=== PATIENT | female | born 1970 | race Two or more races ===

== ENCOUNTER 2020-05-04 12:45 | Inpatient (IN) | payer OTHER ==
[~2020-05-04] VITALS: Ht 165.1 cm; Wt 67.1 kg
[2020-05-04] MEDS ORDERED: FERROUS FUMARA324 MG PO (14:27)
[2020-05-12] MEDS ORDERED: SOD SULFACET170.3 GM (08:19)
[2020-05-12] MEDS ORDERED: METRONIDAZOLE45 G1 (08:19)
== END 2020-05-15 17:19 | disposition home or self-care (01) | DRG 330 ==
LOC: ADM 12:45 → EDSTATUS 12:45 → O/R 05-12 05:00 → SURG 05-12 05:00 → SURH 05-12 06:15 → SURG 05-12 11:03 → SURH 05-12 12:45 → SURG 05-15 17:19
PROVIDERS: ADMIT Colon & Rectal Surgery; ATTEND Colon & Rectal Surgery
PROC: 07BD4ZX Excision of Aortic Lymphatic, Percutaneous Endoscopic Approach, Diagnostic (ICD-10-PCS; 2020-05-12)
PROC: 0DBU4ZZ Excision of Omentum, Percutaneous Endoscopic Approach (ICD-10-PCS; 2020-05-12)
PROC: 0DTF4ZZ Resection of Right Large Intestine, Percutaneous Endoscopic Approach (ICD-10-PCS; principal; 2020-05-12 06:15)
PROC: 30233N1 Transfusion of Nonautologous Red Blood Cells into Peripheral Vein, Percutaneous Approach (ICD-10-PCS; 2020-05-15)
DX: C18.3 Malignant neoplasm of hepatic flexure (principal); C77.2 Secondary and unspecified malignant neoplasm of intra-abdominal lymph nodes; D50.0 Iron deficiency anemia secondary to blood loss (chronic)

== ENCOUNTER 2020-05-11 11:54 | Day surgery (SDC) | payer OTHER ==
[~2020-05-11 11:54] MED LIST: FERROUS FUMARA324 MG PO
[2020-05-12] MEDS ORDERED: METRONIDAZOLE45 G1 (08:19)
[2020-05-12] MEDS ORDERED: SOD SULFACET170.3 GM (08:19)
== END 2020-05-11 16:00 | disposition home or self-care (01) ==
LOC: AMB-ENDOS 11:54
PROVIDERS: ATTEND Colon & Rectal Surgery
DX: C18.3 Malignant neoplasm of hepatic flexure (principal); Z20.828 Contact with and (suspected) exposure to other viral communicable diseases; K64.1 Second degree hemorrhoids

== ENCOUNTER 2021-06-18 09:40 | Day surgery (SDC) | payer OTHER ==
[~2021-06-18 09:40] MED LIST changes: +METRONIDAZOLE45 G1; +SOD SULFACET170.3 GM
== END 2021-06-18 16:35 | disposition home or self-care (01) ==
LOC: AMB-ENDOS 09:40
PROVIDERS: ATTEND Colon & Rectal Surgery
DX: K62.89 Other specified diseases of anus and rectum (principal); K64.0 First degree hemorrhoids; Z20.822 Contact with and (suspected) exposure to COVID-19